=== PATIENT | female | born 1970 ===

== ENCOUNTER 2018-06-26 05:51 | Day surgery (SDC) | payer MEDICAID ==
[2018-06-25 12:18] VITALS: BMI 23.7
[2018-06-26] MEDS ORDERED: Lidocaine Hydrochloride 10 ML INJ ONE (07:42)
[2018-06-26] MEDS ORDERED: ceFAZolin IV 1 gm in Dextrose 1 GM/50 ML BAG IVPB ONE (07:42)
[2018-06-26] MEDS ORDERED: Midazolam 2 MG/2 ML VIAL ONE (07:42)
[2018-06-26] MEDS ORDERED: Propofol 10 mg/ml Inj (20 ML) ONE (07:42)
[2018-06-26] MEDS ORDERED: Bupivacaine HCl 0.5% PF (30 ml) Inj ONE (07:42)
[2018-06-26] MEDS ORDERED: Bacitracin 500 Units/gm Oint Foilpak UD ONE (08:23)
[2018-06-26] MEDS ORDERED: Dexamethasone 4 mg/1 ml ONE (08:27)
[2018-06-26] MEDS ORDERED: Lactated Ringer's 1,000 ML IV SCH (09:00)
--- NOTE | 2018-06-26 09:06 | PCM.SURG1 ---
Surgeon's Initial Post Op Note - Surgeon's Notes Surgeon: Dr. Alamo DPM Travel Pta: Dr. Natalie Das DPM PGY-2 Type of Anesthesia: IV Sedation, Local Anesthesia Administered By: Dr. Wilson Pre-Operative Diagnosis: Right foot dorsal foot exostosis Operative Findings: See dictation. M: 3-0, 4-0 vicryl, 4-0 nylon, bone wax. I: 20 cc of 1:1 1% lidocaine plain:0.5% marcain plain - preop. 10 cc of 0.5% marcain plain, 4 mg of dexamethasone - post op Post-Operative Diagnosis: Right foot dorsal exostosis, Right foot split tear of EHL Operation Performed: Right foot dorsal exostectomy; Right foot repair of EHL tendon Specimen/Specimens Removed: None Estimated Blood Loss: EBL {In ML}: 0 Blood Products Given: N/A Drains Used: No Drains Post-Op Condition: Good Date of Surgery/Procedure: 06/26/18 Time of Surgery/Procedure: 09:08
--- NOTE | 2018-06-26 09:58 | RAD ---
Date of service: 06/26/2018 PROCEDURE: Right Foot Radiographs. HISTORY: s/p right foot surgery COMPARISON: None. FINDINGS: BONES: Limited examination consists of only two views. No oblique view submitted. No fracture identified. No evidence of osteotomy. No lytic or blastic osseous lesion. No periosteal reaction. JOINTS: Normal. SOFT TISSUES: Normal. OTHER FINDINGS: None. IMPRESSION: Normal right foot radiographs.
[2018-06-26 10:52] VITALS: BP 120/79; PULSE 54; RESP 16; TEMP 97.7; O2SAT 99
--- NOTE | 2018-06-27 11:02 | OP ---
PROCEDURE DATE: 06/26/2018 PREOPERATIVE DIAGNOSIS: Right foot dorsal exostosis. POSTOPERATIVE DIAGNOSES: 1. Right foot first metatarsal cuneiform dorsal exostosis. 2. Right foot with tendon tear of extensor hallucis longus. PROCEDURES PERFORMED: 1. Right foot first metatarsal cuneiform dorsal exostectomy. 2. Right foot repair of extensor hallucis longus tendon. SURGEON: Carlos Alamo DPM. REPAIR TECHNICIAN: Natalie Das DPM, PGY-2. ANESTHESIOLOGIST: Eben Alarcon DO ANESTHESIA TYPE: IV sedation with local. INDICATION: The patient is a 48-year-old female with the above diagnoses. The patient has been treated by Dr. Alamo in his office as an outpatient basis where he has exhausted multiple forms of conservative treatments, which include but are not limited to padding, strapping, home physical therapy, stretching exercises, oral anti-inflammatories and injections. The patient at this time seeks surgical intervention and now requests surgical procedure. All risks, benefits, and possible complications of the proposed procedure have been explained to the patient at greater length. The patient verbalized understanding and wishes to continue with the procedure. N.p.o. status was confirmed prior to bringing the patient to the operating room. PREPARATION: The patient was brought into the operating room and was placed on the operating room table in supine position. Time-out was performed for identification of the correct patient and the procedure. After the induction of IV sedation, the patient received a total of 20 mL of 1:1 mixture of 1% lidocaine plain to 0.5% Marcaine plain in a local block-type fashion to the patient's right foot. Once local anesthesia was achieved, the right foot was then prepped and draped in usual sterile manner. Ankle tourniquet was applied to the patient's right ankle prior to draping for the procedure. The patient's right foot was then exsanguinated and with elevation the pneumatic ankle tourniquet was inflated to 250 mmHg and the procedure began. DESCRIPTION OF PROCEDURE: PROCEDURE #1: RIGHT FOOT FIRST METATARSAL CUNEIFORM DORSAL EXOSTECTOMY: Attention was directed to the first metatarsal cuneiform joint. With the use of #15 blade, approximately 6 cm in length a curvilinear incision was created along the dorsal aspect of the first metatarsal cuneiform joint lateral to the extensor hallucis longus tendon. Incision was then carried down to the subcutaneous tissue being careful to retract and ligate all neurovascular structures as deemed necessary. The structures were then carefully dissected free of their osseous attachment and reflected medially and laterally thus exposing the first metatarsal cuneiform joint to the operative site. The tendon on the extensor hallucis longus was retracted out of the way medially using a Rex retractor. It was noted during the procedure that the tendon on the extensor hallucis longus had split tear which was approximately 2.5 cm long. The split tear of the tendon was just superficial to the exostosis. Next, utilizing an oscillating bone saw, the dorsal and medial prominences were resected and passed off the operative field. A rasp was then used to smoothen down the bony prominences. The wound was then irrigated with copious amount of normal sterile saline at this time. Bone wax was utilized to apply to the debrided site at the metatarsal cuneiform joint. At this time, the periosteal structures were then reapproximated using the 3-0 Vicryl. PROCEDURE #2: RIGHT FOOT REPAIR OF EXTENSOR HALLUCIS LONGUS TENDON: Attention was directed to the linear longitudinal split tear, which was approximately 2.5 cm long. Utilizing a 3-0 Vicryl re-tubelarization type of technique, the tendon was repaired in an interlocking stitching type pattern. The extensor hallucis longus was then inspected for its integrity at this time and it was noted to be excellent. At this time, the surgical site was then irrigated with normal sterile saline once again. The surgical site was then coapted and the subcutaneous tissue was then coapted using 4-0 Vicryl. The skin was then reapproximated with the use of 4-0 nylon using a horizontal stitch technique. Surgical site was then injected with 10 mL of 0.5% Marcaine plain and a 4 mg of dexamethasone. Surgical site was then dressed with Betadine-soaked Adaptic, 4x4, Kerlix, and Steven bandage. POSTOPERATIVE CONDITION: The patient tolerated the procedure and anesthesia well and was escorted to the recovery room with vital signs stable and neurovascular status intact to the patient's right foot. The patient will remain full weightbearing as tolerated in a surgical shoe. The patient will follow up with Dr. Alamo within one week to his office. Natalie Das DPM Carlos Alamo DPM [id number]
== END 2018-06-26 11:16 | disposition home or self-care (01) ==
LOC: C.SDS 05:51
PROVIDERS: ATTEND Podiatrist Foot & Ankle Surgery
DX: M89.371 Hypertrophy of bone, right ankle and foot (principal); M89.9 Disorder of bone, unspecified
CPT/HCPCS: 28122; 73620; J0690; J1100; J2250; J2704; J3010